=== PATIENT | male | born 1945 | race Caucasian/White ===

== ENCOUNTER 2020-09-26 19:34 | Inpatient (IN) | payer OTHER ==
[~2020-09-26] VITALS: Ht 182.9 cm; Wt 91.2 kg
--- NOTE | ~2020-09-26 | CON ---
[address] [address] CONSULTATION Name: CHEY MARTÍNEZ Room: [address] Jyothi#: [id number] Admission: 09/26/20 Attend Phys: Pantera Mcintyre Discharge: Date of : 41 Report #: [id number] THIS REPORT FOR: cc: Ishmael Valerio MD, Karmel MD Namin, Farid M. MD ~ cc: Ishmael Valerio MD DATE OF CONSULTATION: 09/28/2020 PRIMARY CARE PHYSICIAN: Ishmael Valerio MD Please note at the time of this dictation, the patient was seen and physically examined by myself. REASON FOR CONSULTATION: Abdominal pain, nausea, vomiting, small-bowel obstruction. HISTORY OF PRESENT ILLNESS: This is a 75-year-old male who presented to the Emergency Room with having nausea, vomiting and abdominal pain. He states he had a little bit of constipation which started and he took some Dulcolax for that, then he started throwing up and unable to keep anything down, prompting him to come in. He denied any fever or chills at the time in the Emergency Room. When he had his CAT scan done that revealed a small-bowel obstruction with a transition point in the lower abdominal quadrant. An NG tube was placed to suction at that time and then he was admitted. Currently, patient states that last evening after the NG was placed, he started having a great deal of flatulence and he had a large bowel movement. His bowel sounds are back. He states he feels much better and he is no longer having any abdominal pain. ALLERGIES: No known drug allergies. MEDICATIONS FROM HOME: Include aspirin, carvedilol, triamterene, Glucophage, Lipitor, fish oil, vitamin D, glucosamine, multivitamin and Androderm. PAST MEDICAL HISTORY: Hypertension, non-insulin dependent diabetic, high cholesterol. He is hard at hearing. PAST SURGICAL HISTORY: Cholecystectomy. He had a retinal eye blockage. FAMILY HISTORY: Negative for any GI or female cancers. SOCIAL HISTORY: Remote history of smoking back in the 70s or early 80s. Denies any alcohol use [place] [address] CONSULTATION Name: CHEY MARTÍNEZ Elizabeth [address]#: [id number] Admission: 09/26/20 Attend Phys: Pantera Mcintyre Discharge: Date of : 41 Report #: [id number] REVIEW OF SYSTEMS: Twelve point review of systems is essentially negative except what is mentioned in the HPI. PHYSICAL EXAMINATION: VITAL SIGNS: Temperature 36.9, pulse 71, respirations 18, blood pressure 164/94. HEART: Regular rate and rhythm. LUNGS: Clear. ABDOMEN: Soft, positive bowel sounds in all four quadrants with no masses or tenderness noted. LABORATORY DATA: Hemoglobin 13.2, white count 9.5, platelets 181. GFR is 33, BUN is 49, creatinine is 2. Lipase was slightly elevated at 414 and LFTs were completely normal. IMPRESSION: 1. Abdominal pain, resolved. 2. Nausea and vomiting, resolved. 3. Small-bowel obstruction, resolved. 4. Chronic kidney disease. PLAN: 1. No plans for any GI intervention at this time. 2. We will sign off and be available if further indications are warranted. Thank you for allowing us to participate in this patient's care. Please do not hesitate to call with any questions regarding this consult. By: [id number] Soriano MD /nt
[~2020-09-26 19:34] MED LIST: ANDRODERM1 EAC2 PO; ASPIRIN EC81 M1 PO; CHLORTHALIDONE25 MG PO; FELODIPINE 5 MG5 M1 PO; FISH OIL 1,001000 M2 PO; GEMFIBROZIL 60600 MG PO; GLUCOSAMINE HC500 MG PO; HYDROCODON-ACE1 EAC7 PO; LIPITOR10 MG PO; LOPRESSOR25 PO; METFORMIN HCL500 MG PO; MOBIC15 MG PO; POTASSIUM20 PO; PROTONIX 20 MG20 M1 PO; SIMVASTATIN40 MG PO; TOPROL XL25 MG PO; UNICOMPLEX M TA1 TA1 PO; VERAPAMIL ER180 MG PO; VITAMIN D2000 UNIT PO
[2020-09-26 20:01] VITALS: BP 112/57
[2020-09-26] MEDS ORDERED: TRIAMTERENE/HCT1 CA1 PO (20:07)
[2020-09-26] MEDS ORDERED: CARVEDILOL25 MG PO (20:07)
[2020-09-26 21:23] LABS: ABSOLUTE BASOPHILS 0.1 thou/uL (0.0-0.2); ABSOLUTE EOSINOPHILS 0.1 thou/uL (0.0-0.7); ABSOLUTE LYMPHOCYTES 0.7 thou/uL (0.8-5.3); ABSOLUTE NEUTROPHILS 7.6 thou/uL (1.6-8.1); EOSINOPHILS 1.4 %; HEMATOCRIT 38.2 % (42.0-52.0); HEMOGLOBIN 13.2 gm/dL (14.0-18.0); LYMPHOCYTES 7.5 %; MCH 30.1 pg (26.0-34.0); MCHC 34.6 g/dL (28.0-37.0); MCV 86.8 fL (80.0-100.0); MONOCYTES 10.3 %; MPV 7.3 fl. (7.2-11.1); NUCLEATED RBCS 0 /100WBC; PLATELET COUNT* 181 thou/uL (150-400); POLYS 79.8 %; RDW-CV 13.9 % (10.5-14.5); WBC 9.5 thou/uL (4.0-11.0)
[2020-09-26 21:35] LABS: CALCIUM 9.7 mg/dL (8.5-10.1); CREATININE 2.6 mg/dL (0.6-1.3)
[2020-09-26 21:39] LABS: ALBUMIN 3.4 g/dL (3.4-5.0); MAGNESIUM 2.3 mg/dL (1.8-2.4); TOTAL BILIRUBIN 0.8 mg/dL (<0.1-1.0); TOTAL PROTEIN 6.9 g/dL (6.4-8.2)
[2020-09-27 03:32] VITALS: BP 109/58
[2020-09-27 06:13] LABS: URINE BILIRUBIN NEGATIVE (Negative); URINE BLOOD NEGATIVE (Negative); URINE CLARITY CLEAR; URINE COLOR YELLOW; URINE GLUCOSE-RANDOM NEGATIVE (Negative); URINE KETONES NEGATIVE (Negative); URINE LEUKOCYTES-REFLEX NEGATIVE (Negative); URINE NITRITE-REFLEX NEGATIVE (Negative); URINE PROTEIN NEGATIVE (Negative); URINE UROBILINOGEN 0.2 E.U./dl (0.2-1.0)
[2020-09-27 07:30] VITALS: BP 105/56
[2020-09-27 12:00] VITALS: BP 127/73
[2020-09-27 15:08] LABS: CALCIUM 8.8 mg/dL (8.5-10.1); MAGNESIUM 2.2 mg/dL (1.8-2.4); POTASSIUM 3.7 mmol/L (3.5-5.1)
[2020-09-27 15:30] VITALS: BP 159/98
[2020-09-27 22:10] VITALS: BP 167/93
[2020-09-28 00:44] VITALS: BP 162/96
[2020-09-28 08:19] VITALS: BP 164/94
--- NOTE | 2020-09-28 14:01 | EKG ---
[place] [address] ELECTROCARDIOGRAM REPORT Name: CHEY MARTÍNEZ Room: [address] ADM IN M.R.#: [id number] Admission: 09/28/20 Attend Phys: rBuce Velazquez Discharge: Date of : 41 Date of Service: 09/26/202133 Report #: [id number] THIS REPORT FOR: //name// [facility] ED Test Date: 2020-09-26 Test Time: 21:34:18 Pat Name: CHEY MARTÍNEZ Department: Room: [address] Gender: M Die Holder: MR : 1945 Requested By: Kenyetta Wade Order Number: [id number] Michael MD: Gabino Clements Measurements Intervals [place] Rate: 81 P: 59 NM: 177 QRS: 38 QRSD: 100 T: 27 QT: 400 QTc: 465 Interpretive Statements Sinus rhythm Multiple ventricular premature complexes Borderline low voltage, extremity leads Baseline wander in lead(s) V2 Compared to ECG 01/16/2017 18:30:35 Ventricular premature complex(es) now present Electronically Signed On 09-28-2020 14:00:57 CDT by Gabino Clements [email or web address] <ELECTRONICALLY SIGNED> By: Gabino Clements MD, FACC 09/28/20 1400 33 33 Gabino Clements MD, FAC /EPI
[2020-09-28 16:00] VITALS: BP 153/86
[2020-09-28 20:50] VITALS: BP 150/88
[2020-09-29 08:30] VITALS: BP 163/103
[2020-09-29 09:08] LABS: CALCIUM 8.5 mg/dL (8.5-10.1); CREATININE 1.5 mg/dL (0.6-1.3); POTASSIUM 3.3 mmol/L (3.5-5.1)
[2020-09-29 12:00] VITALS: BP 154/89
[2020-09-29] MEDS ORDERED: SENNA8.6 MG PO (13:28)
[2020-09-29] MEDS ORDERED: NORVASC10 MG PO (13:29)
[2020-09-29 15:30] VITALS: BP 154/89
[2020-09-29 16:00] VITALS: BP 128/87
== END 2020-09-29 18:30 | disposition home or self-care (01) | DRG 388 ==
LOC: M.ERS 19:34 → M.TBA-ER 22:59 → M.2W 09-27 22:11
PROVIDERS: Emergency Medicine; Internal Medicine; ADMIT Internal Medicine; ATTEND Internal Medicine
PROC: 0D9670Z Drainage of Stomach with Drainage Device, Via Natural or Artificial Opening (ICD-10-PCS; principal; 2020-09-26)
DX: K56.609 Unspecified intestinal obstruction, unspecified as to partial versus complete obstruction (principal); N17.0 Acute kidney failure with tubular necrosis; E87.1 Hypo-osmolality and hyponatremia; N39.0 Urinary tract infection, site not specified; J96.11 Chronic respiratory failure with hypoxia; I48.91 Unspecified atrial fibrillation; R04.0 Epistaxis; N18.32 Chronic kidney disease, stage 3b; E87.6 Hypokalemia; I12.9 Hypertensive chronic kidney disease with stage 1 through stage 4 chronic kidney disease, or unspecified chronic kidney disease; E11.22 Type 2 diabetes mellitus with diabetic chronic kidney disease; R33.9 Retention of urine, unspecified; E78.00 Pure hypercholesterolemia, unspecified; Z20.822 Contact with and (suspected) exposure to COVID-19; Z90.49 Acquired absence of other specified parts of digestive tract; Z79.82 Long term (current) use of aspirin; Z79.899 Other long term (current) drug therapy